=== PATIENT | female | born 1990 ===

== ENCOUNTER 2016-08-25 12:03 | Emergency (ER) | payer MEDICAID, OTHER ==
[2016-08-25 12:18] VITALS: BMI 25.9
--- NOTE | 2016-08-25 13:07 | C.PDOC ---
History Of Present Illness 25 yr old female presents to the ER for evaluation of swelling to the bilateral eyes since waking up this morning. Patient admits for the past month her eyes have been itchy and was taking claritin. Currently patient states the symptoms have resolved, asymptomatic. 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 Patient is also requesting evaluation of mild vaginal irritation and white discharge with (+) mild odor noted for the past 1 week. Patient denies fever, chills, headache, dizziness, vision changes, blurry vision, contact use, sore throat, nausea, vomiting, abdominal pain, diarrhea, dysuria, incontinence, back pain, denies previous hx of STD. Ambulate to ED for evaluation, not in any apparent distress. Time Seen by Provider: 08/25/16 12:22 Chief Complaint (Nursing): Eye Problem History Per: Patient History/Exam Limitations: no limitations Onset/Duration Of Symptoms: Sudden Onset (Eye swelling since morning ) Past Medical History Reviewed: Historical Data, Nursing Documentation, Vital Signs Vital Signs: Last Vital Signs Temp 98.2 F 08/25/16 14:30 Pulse 85 08/25/16 14:30 Resp 18 08/25/16 14:30 BP 106/69 08/25/16 14:30 Pulse Ox 100 08/25/16 14:30 - [facility] Procedures DELIVERY OF PRODUCTS OF CONCEPTION, EXTERNAL APPROACH (10/05/15) MONITORING NOS (06/07/13) INSERT INDWELLING CATH (06/07/13) MANUAL ASSIST DELIV NEC (06/07/13) MONITORING OF POC, CARDIAC RATE, NEON SIGN WORKER APPROACH (10/05/15) REPAIR OB LACERATION NEC (06/07/13) Family History: States: No Known Family Hx - Social History Hx Alcohol Use: Yes Hx Substance Use: Yes - Immunization History Hx Tetanus Toxoid Vaccination: No Hx Influenza Vaccination: No Hx Pneumococcal Vaccination: No Review Of Systems Except As Marked, All Systems Reviewed And Found Negative. Constitutional: Negative for: Fever, Chills Eyes: Positive for: Other (Bilateral eye swelling, has resovled now. ). Negative for: Vision Change Gastrointestinal: Negative for: Nausea, Vomiting, Abdominal Pain, Diarrhea Genitourinary: Positive for: Vaginal Discharge, Other (Vaginal irritation ). Negative for: Dysuria, Incontinence Musculoskeletal: Negative for: Back Pain Neurological: Negative for: Weakness, Numbness Physical Exam - Physical Exam Appears: Well, Non-toxic, No Acute Distress Skin: Warm, Dry, No Rash Head: Normacephalic Eye(s): bilateral: PERRL (no conjunctival injection or discharge, no periorbital edema or erythema.) Ear(s): Bilateral: Normal Nose: No Discharge Oral Mucosa: Moist, No Drooling Throat: Normal, No Erythema, No Exudate, No Drooling Neck: Supple Chest: Symmetrical, No Tenderness Cardiovascular: Rhythm Regular, No Murmur Respiratory: No Rales, No Rhonchi, No Stridor, No Wheezing Gastrointestinal/Abdominal: Soft, No Tenderness, No Organomegaly, No Distention , No Guarding, No Rebound Back: No CVA Tenderness Extremity: No Pedal Edema, No Swelling Neurological/Psych: Oriented x3, Normal Speech ED Course And Treatment O2 Sat by Pulse Oximetry: 99 Pulse Ox Interpretation: Normal Progress Note: On re-evaluation, pt is afebrile, hemodynamicaly stable. NOn- toxic. Tolerate Po well in Ed. PulseOx 100% RA. neck: (-) meningeal sign. B/ L eyes: PEERLA, no conjunctival injection or discharges, no periorbital edema or erythema, no pain or limitation on eye movement B/L. ENT: no acute finidngs. Lungs: CTA B/L, BS equal B/L. Abd: benign. back: (-) CVA tenderness. UA results review and appears without acute abnoramlities. Pt has clinical findings c/w allergic conjunctivtis, vaginosis. Pt advised on course of ds. ref. to f/u with PMD , Opht, [facility] in 2-3 days for re-eavl. return to ED if any worsening or new changes. Medical Decision Making Medical Decision Making: PLAN: * HCG * Urinalysis Disposition Counseled Patient/Family Regarding: Studies Performed, Diagnosis, Need For Followup - Disposition [facility] [Outside] Ayush Campos MD [Staff Provider] - Disposition: HOME/ ROUTINE Disposition Time: 13:25 Condition: STABLE Additional Instructions: Take antihistamines OTC- Claritin, Allergra, benadryl etc Use ophthalmic drops as need Take medication as prescribed Follow up with PMD, Ophthalmology and [facility] in 2-3 days for re-evaluation. return to Ed if any worsening or new changes. Prescriptions: Ketotifen Fumarate [Zaditor] 1 drop BOTHEYES Q8 #1 drops metroNIDAZOLE 0.75% [Metrogel Cream] 1 applic VAG HS #1 tube Instructions: Bacterial Vaginosis (ED), Allergies (ED) Forms: Work Excuse - Clinical Impression Clinical Impression: Allergic conjunctivitis, Bacterial vaginosis - PA / [employer] / Resident Statement MD/DO has reviewed & agrees with the documentation as recorded. - Scribe Statement The provider has reviewed the documentation as recorded by the Scribe Jenn Capps All medical record entries made by the Leeroyibzoila were at my direction and personally dictated by me. I have reviewed the chart and agree that the record accurately reflects my personal performance of the history, physical exam, medical decision making, and the department course for this patient. I have also personally directed, reviewed, and agree with the discharge instructions and disposition.
[2016-08-25 13:49] LABS: RBC URINE 6 /hpf (0-3); URINE BILIRUBIN NEGATIVE (NEGATIVE); URINE BLOOD NEGATIVE (NEGATIVE); URINE COLOR Yellow (YELLOW); URINE GLUCOSE (UA) NORMAL (Normal); URINE KETONE NEGATIVE (NEGATIVE); URINE LEUKOCYTE ESTERASE NEG Leu/uL (Negative); URINE PROTEIN NEGATIVE (NEGATIVE); URINE UROBILINOGEN NORMAL mg/dL (0.2-1.0); WBC URINE 1 /hpf (0-5)
[2016-08-25 14:30] VITALS: BP 106/69; PULSE 85; RESP 18; TEMP 98.2
[2016-08-25 22:54] VITALS: O2SAT 99
== END 2016-08-25 14:30 | disposition home or self-care (01) ==
LOC: C.ER 12:03
DX: N76.0 Acute vaginitis (principal); H10.13 Acute atopic conjunctivitis, bilateral